=== PATIENT | female | born 1940 | race Caucasian/White ===

== ENCOUNTER → 2016-10-04 | Outpatient (REF) | LOC: ZLAB.WCH 18:08 | DX: Z01.89 Encounter for other specified special examinations (principal) ==

== ENCOUNTER → 2017-08-08 | Outpatient (CLI) | payer MEDICARE, OTHER | LOC: COL.PUL 10:40 | DX: R06.09 Other forms of dyspnea (principal); J43.1 Panlobular emphysema; Z77.098 Contact with and (suspected) exposure to other hazardous, chiefly nonmedicinal, chemicals ==

== ENCOUNTER → 2020-08-15 | Outpatient (REF) | LOC: ZLAB.WCH 15:38 | DX: Z01.89 Encounter for other specified special examinations (principal) ==

== ENCOUNTER → 2020-10-02 | Outpatient (REF) | LOC: ZLAB.WCH 18:34 | DX: Z01.89 Encounter for other specified special examinations (principal) ==

== ENCOUNTER 2022-04-21 09:00 | Outpatient (RCR) | payer MEDICARE, OTHER ==
[~2022-04-21] VITALS: Ht 167.6 cm; Wt 53.2 kg
[2022-04-21] VITALS (9 sets, daily range): BP systolic 98–138; BP diastolic 60–87; PULSE 87–100; TEMP 97.8–98.2
[~2022-04-21 09:00] MED LIST: BENTYL 20MG20 MG/TAB PO; ESTRADERM0.1 MG/24 TD; LEVAQUIN 750MG750 M1 PO; MASON NATURAL2000 IU PO; MIRALAX PA17 GM/Dose PO; NORCO 325 MG-51 TAB PO; PREDNISONE10 MG PO; RECLAST5 MG/100 M; SENEXON-S 50-81 EACH PO; TYLENOL 500MG500 MG PO; ZOFRAN ODT4 MG PO; ZOFRAN ODT8 MG PO; ZYLOPRIM 300MG300 MG PO
[2022-04-21] MEDS ORDERED: PROTONIX 40MG T40 MG PO (10:03)
[2022-04-21] MEDS ORDERED: AMOXICILLIN 8751 TAB PO (10:05)
[2022-04-21] MEDS ORDERED: CARAFATE 1GM1 G PO (10:06)
[2022-04-21] MEDS ORDERED: DIFLUCAN 100MG100 MG PO (10:06)
[2022-04-21] MEDS ORDERED: IMODIUM 2MG CAPS2 MG PO (10:07)
[2022-04-21] MEDS ORDERED: ZOVIRAX400 MG PO (10:08)
== END 2022-04-21 14:00 | disposition home or self-care (01) ==
LOC: EUO 09:00
DX: C83.39 Diffuse large B-cell lymphoma, extranodal and solid organ sites (principal)
CPT/HCPCS: J1644; J7050; P9016

== ENCOUNTER 2023-01-07 10:25 | Inpatient (IN) | payer MEDICARE, OTHER ==
[~2023-01-07] VITALS: Ht 167.6 cm; Wt 53.6 kg
[~2023-01-07 10:25] MED LIST changes: +AMOXICILLIN 8751 TAB PO; +CARAFATE 1GM1 G PO; +DIFLUCAN 100MG100 MG PO; +IMODIUM 2MG CAPS2 MG PO; +PROTONIX 40MG T40 MG PO; +ZOVIRAX400 MG PO
[2023-01-07 11:34] LABS: BASO # 0.1 K/mm3 (0.0-0.2); BASO % 0.3 % (0.0-2.0); EOS % 0.1 % (0.0-4.0); GRAN # 15.5 K/mm3 (1.4-6.5); GRAN % 87.4 % (42.2-75.2); HEMATOCRIT 37.8 % (37.0-47.0); HEMOGLOBIN 12.1 g/dl (12.5-16.0); LYMPH # 0.6 K/mm3 (1.2-3.4); LYMPH % 3.6 % (20.0-51.0); MEAN CELL VOLUME 93 fl (80.0-100.0); MEAN CORPUSCULAR HEMOGLOBIN 30 pg (27-31); MEAN CORPUSCULAR HGB CONC 32 g/dl (33.0-37.0); MEAN PLATELET VOLUME 8.9 fl (7.4-10.4); MONO # 1.4 K/mm3 (0.1-0.6); MONO % 8.1 % (1.7-9.3); PLATELET COUNT 390 K/mm3 (130-400); RED BLOOD COUNT 4.07 M/mm3 (4.10-5.30); REDCELL DISTRIBUTION WIDTH-CV 12.6 % (11.5-14.5)
[2023-01-07 11:53] LABS: ALBUMIN 1.8 gm/dL (3.4-4.8); BILIRUBIN,TOTAL 0.4 mg/dL (0.2-1.2); CALCIUM 12.3 mg/dL (8.4-10.2); CREATININE, serum 0.83 mg/dL (0.57-1.11); TOTAL PROTEIN 4.4 gm/dL (6.2-8.1)
[2023-01-07 11:54] LABS: POTASSIUM 3.9 mmol/L (3.5-4.5)
[2023-01-07 12:58] LABS: COLLECTION METHOD CLEAN CATCH
[2023-01-07 13:13] LABS: PH 5.5 (5.0-8.5); URINE APPEARANCE Clear (CLEAR/HAZY); URINE BLOOD Negative (NEGATIVE); URINE COLOR Yellow (YELLOW); URINE GLUCOSE Negative (NEGATIVE); URINE KETONE Negative (NEGATIVE); URINE NITRATE Negative (NEGATIVE); URINE PROTEIN(semi-quant) Negative (NEGATIVE); URINE UROBILINOGEN 0.2 E.U/dL (0.2-1.0)
[2023-01-07 13:14] LABS: URINE BACTERIA Rare /hpf (NONE SEEN); URINE RBC 0-2 /hpf (0-2)
[2023-01-07 14:34] VITALS: BP 116/65; PULSE 95; TEMP 97.5
[2023-01-07] MEDS ORDERED: MASON NATURAL2000 IU PO (14:35)
--- NOTE | 2023-01-07 14:35 | NUR ---
PT ADMITTED FROM ED WITH WEAKNESS, NAUSEA, AND HYPERCALCEMIA. PT AMBULATED WITH ASSISTANCE TO BED. PT IS AXOX3. PT'S VOICE IS HOARSE. PT IS ON RA. PT IS SR ON TELE. ADMISSON COMPLETED. BEDSIDE. PT ORIENTED TO ROOM AND FLOOR. CALL LIGHT GIVEN. PT INSTRUCTED TO CALL WITH ALL NEEDS.
[2023-01-07] MEDS ORDERED: CITRACAL PO (14:37)
[2023-01-07] MEDS ORDERED: ESTRACE0.1 MG/GM VG (14:39)
[2023-01-07] MEDS ORDERED: ZOFRAN ODT4 MG PO (14:40)
[2023-01-07] MEDS ORDERED: DULCOLAX STOOL100 MG PO (14:41)
[2023-01-07] MEDS ORDERED: PROTONIX 40MG T40 MG PO (14:41)
[2023-01-07] MEDS ORDERED: MIRALAX PA17 GM/Dose PO (14:41)
[2023-01-07 17:00] VITALS: BP_SYST 116
[2023-01-07 20:13] VITALS: BP 117/58; PULSE 88; TEMP 98.3
[2023-01-07 20:19] VITALS: BP_SYST 117
[2023-01-07 23:02] VITALS: BP 121/62; PULSE 90; TEMP 98.2
[2023-01-08] VITALS (8 sets, daily range): BP systolic 112–127; BP diastolic 64–72; PULSE 82–107; TEMP 97.6–98.1
--- NOTE | 2023-01-08 04:24 | NUR ---
ASSESSMENT COMPLETE FOR PERSONNEL REPRESENTATIVE. PT HAD A PRETTY UNEVENTFUL NIGHT THUS FAR. PT DENIED GENERAL PAIN, CHEST PAIN, PALPITATIONS, SOB, N,V,D OR DIZZINESS. PT ASSISTED TO THE RESTROOM AND WITH HER NIGHTTIME CARES. CALL LIGHT WITHIN REACH.
[2023-01-08 05:18] LABS: HEMOGLOBIN 10.7 g/dl (12.5-16.0); MEAN CELL VOLUME 91 fl (80.0-100.0); MEAN CORPUSCULAR HEMOGLOBIN 30 pg (27-31); MEAN CORPUSCULAR HGB CONC 33 g/dl (33.0-37.0); PLATELET COUNT 344 K/mm3 (130-400); RED BLOOD COUNT 3.58 M/mm3 (4.10-5.30); REDCELL DISTRIBUTION WIDTH-CV 12.5 % (11.5-14.5)
[2023-01-08 05:23] LABS: HEMATOCRIT 32.6 % (37.0-47.0)
[2023-01-08 05:46] LABS: ALBUMIN 1.6 gm/dL (3.4-4.8); CALCIUM 9.5 mg/dL (8.4-10.2); CREATININE, serum 0.67 mg/dL (0.57-1.11); MAGNESIUM 1.5 mg/dL (1.6-2.6); PHOSPHOROUS 3.1 mg/dL (2.3-4.7); POTASSIUM 3.6 mmol/L (3.5-4.5)
[2023-01-08 06:04] LABS: BAND 16 % (0-10); LYMPHOCYTE 5 % (20.0-51.0); NEUTROPHILS 76 % (42.0-75.2); OVALOCYTES 1+; PLATELET ESTIMATE NORMAL (NORMAL)
--- NOTE | 2023-01-08 10:05 | NUR ---
Patient alert and oriented x4 this morning. Shift assessment complete, no new variances noted. Patient denies pain at this time. Slight discomfort reported due to constipation, miralax and dulcolax administered. Fluids encouraged. NS and magnesium running through port currently. Patient ambulates self to bathroom with stand by assistance, gait steady. Patient currently in bed with call light in reach, all needs met at this time.
--- NOTE | 2023-01-08 10:19 | NUR ---
SW met with pt for intake. Pt's Maxx Horton ([phone]) also identified of NOK was present. Pt reported living in [place] and [place] . Pt uses [place] [facility] and reports no issues. Pt reports no o2 use and/or no DME. Pt questioned if she is in need of a walker how she would retrieve tomorrow upon discharge. SW explained they would assist upon d/c. Pt denied stairs at home and denied any other need or issue at this time. Pt reported DPOA on file with spouse being designee. D.C plan home with pending OT/PT assessment
--- NOTE | 2023-01-08 13:14 | NUR ---
Patient remains stable, fluids continue to run through port. and various visitors at bedside. Denies pain at this time, patient has not voiced any concerns. Patient currently in bed with call light in reach.
--- NOTE | 2023-01-08 18:28 | NUR ---
Patient continues to do well, denies pain or discomfort other than constipation. Patient states she does not feel comfortable discharging prior to having an adequate bowel movement. States she is willing to try more laxative options other than dulcolax and miralax that were administered this morning. Only BM noted today was a small, formed stool this morning. No loose stool or streaking noted.
[2023-01-09 00:07] VITALS: BP 120/63; PULSE 79; TEMP 97.9
[2023-01-09 00:10] VITALS: BP_SYST 120
[2023-01-09 04:02] VITALS: BP 126/71; PULSE 76; TEMP 98
[2023-01-09 04:20] VITALS: BP_SYST 126
[2023-01-09 06:45] LABS: BASO # 0.1 K/mm3 (0.0-0.2); BASO % 0.3 % (0.0-2.0); EOS % 0.2 % (0.0-4.0); GRAN # 15.3 K/mm3 (1.4-6.5); GRAN % 89.1 % (42.2-75.2); HEMOGLOBIN 10.2 g/dl (12.5-16.0); LYMPH # 0.6 K/mm3 (1.2-3.4); LYMPH % 3.2 % (20.0-51.0); MEAN CELL VOLUME 90 fl (80.0-100.0); MEAN CORPUSCULAR HEMOGLOBIN 30 pg (27-31); MEAN CORPUSCULAR HGB CONC 34 g/dl (33.0-37.0); MEAN PLATELET VOLUME 9.2 fl (7.4-10.4); MONO # 1.1 K/mm3 (0.1-0.6); MONO % 6.3 % (1.7-9.3); PLATELET COUNT 378 K/mm3 (130-400); RED BLOOD COUNT 3.38 M/mm3 (4.10-5.30); REDCELL DISTRIBUTION WIDTH-CV 12.5 % (11.5-14.5)
[2023-01-09 06:49] LABS: HEMATOCRIT 30.4 % (37.0-47.0)
[2023-01-09 07:02] LABS: ALBUMIN 1.5 gm/dL (3.4-4.8); CALCIUM 8.3 mg/dL (8.4-10.2); CREATININE, serum 0.61 mg/dL (0.57-1.11)
[2023-01-09 07:28] LABS: MAGNESIUM 1.8 mg/dL (1.6-2.6); PHOSPHOROUS 1.9 mg/dL (2.3-4.7)
[2023-01-09 07:58] VITALS: BP 116/67; PULSE 77; TEMP 97.4
--- NOTE | 2023-01-09 08:22 | NUR ---
Patient in pleasant mood this morning. Shift assessment complete, no new variances noted. Patient denies pain or discomfort at this time. Miralax has been effective overnight, patient is having regular formed bowel movements. Gait is steady. Patient currently in bed with call light in reach, all needs met at this time.
[2023-01-09 11:12] VITALS: BP 129/71; PULSE 82; TEMP 97.3
--- NOTE | 2023-01-09 11:55 | NUR ---
Patient arrived to floor from ICU around 1130. Telemetry on, IVs to LAC and left hand. NS running through LAC. Patient is alert and oriented x4. Lung sounds clear, HR 63. at bedside. Patient voices no concerns at this time. Patient currently in bed with call light in reach.
[2023-01-09] MEDS ORDERED: PREDNISONE10 MG PO (12:15)
--- NOTE | 2023-01-09 16:06 | NUR ---
Discharge instructions discussed with patient including follow-up appointments, medications, and education packets. Patient verbalized understanding. Port to left upper chest flushed with heparin and de-accessed. Telemetry off. Patient voices no concerns at time of discharge other than rolaid medication, patient informed that medication is available over the counter. Patient showering and then will be driven home by .
--- NOTE | 2023-01-09 16:50 | NUR ---
Patient escorted out by and staff member via wheelchair around 1640. No concerns voiced at time of discharge.
== END 2023-01-09 16:40 | disposition home or self-care (01) | DRG 641 ==
LOC: COL.ER 10:25 → MEDICAL 13:14
PROVIDERS: Emergency Medicine; ADMIT Internal Medicine
DX: E83.52 Hypercalcemia (principal); K21.9 Gastro-esophageal reflux disease without esophagitis; K59.00 Constipation, unspecified; Z85.72 Personal history of non-Hodgkin lymphomas; Z88.2 Allergy status to sulfonamides
CPT/HCPCS: J1644; J1650; J2405; J2430; J3475; J7030; J7050; J7512; Q9967